=== PATIENT | female | born 1960 | race Two or more races ===

== ENCOUNTER 2021-08-02 07:47 | Outpatient (CLI) | payer OTHER ==
[~2021-08-02 07:47] MED LIST: ENALAPRIL MALEAT5 MG; HUMALOG100 UNIT/1; JANUVIA25 MG; LANTUS SOL100 UNIT/1; METFORMIN HCL850 MG; TRAMADOL HCL50 MG PO
== END 2021-08-02 07:53 | disposition home or self-care (01) ==
LOC: RX STUDY 07:47
PROVIDERS: ATTEND Internal Medicine Gastroenterology
DX: R13.12 Dysphagia, oropharyngeal phase (principal)

== ENCOUNTER 2024-04-17 13:29 | Emergency (ER) | payer OTHER ==
[~2024-04-17] VITALS: Ht 165.1 cm; Wt 106.6 kg
[2024-04-17] MEDS ORDERED: GLIMEPIRIDE4 MG PO (14:21)
[2024-04-17] MEDS ORDERED: HORIZANT300 MG PO (14:22)
[2024-04-17] MEDS ORDERED: DIOVAN40 MG PO (14:22)
[2024-04-17] MEDS ORDERED: SIMVASTATIN20 MG PO (14:22)
[2024-04-17] MEDS ORDERED: PEPCID AC20 MG PO (14:23)
[2024-04-17] MEDS ORDERED: PLAVIX75 MG PO (14:23)
[2024-04-17] MEDS ORDERED: ACETAMINOPHEN 500 MG GEL..CAP PO ONE ×2 (17:00→17:21)
[2024-04-17] MEDS ORDERED: FAMOtidine 10 MG/ML (4ML VIAL) IV ONE (17:00)
[2024-04-17] MEDS ORDERED: GUAIFENESIN 200 MG/10 ML BLIST.PACK PO ONE ×2 (17:00→17:21)
[2024-04-17] MEDS ORDERED: BENZONATATE 100 MG CAPSULE PO ONE (17:00)
[2024-04-17] MEDS ORDERED: FAMOTIDINE/PF 20 MG/2 ML VIAL ONE (17:21)
[2024-04-17 18:36] LABS: HEMATOCRIT 43.6 % (36.0-45.00); HEMOGLOBIN 14.5 g/dL (12.0-15.00); MEAN CELL VOLUME 89.1 fL (80.00-100.00); MEAN CORPUSCULAR HEMOGLOBIN 29.7 pg (27.00-32.0); MEAN CORPUSCULAR HGB CONC 33.3 g/dl (32.0-36.0); PLATELET COUNT 177 K/uL (150-450); RED BLOOD COUNT 4.89 M/uL (4.00-6.00); RED CELL DISTRIBUTION WIDTH 13.5 % (11.5-14.5)
== END 2024-04-17 21:16 | disposition home or self-care (01) ==
LOC: ER 13:31
PROVIDERS: General Practice
DX: J06.9 Acute upper respiratory infection, unspecified (principal); Z20.822 Contact with and (suspected) exposure to COVID-19; E11.9 Type 2 diabetes mellitus without complications; Z79.4 Long term (current) use of insulin; I10 Essential (primary) hypertension; Z88.8 Allergy status to other drugs, medicaments and biological substances; Z87.09 Personal history of other diseases of the respiratory system
CPT/HCPCS: 36415; 71046; 96365; 99283; J3490